=== PATIENT | male | born 1975 | race Two or more races ===

== ENCOUNTER 2018-03-24 21:57 | Emergency (ER) | payer OTHER ==
[~2018-03-24] VITALS: Ht 175.3 cm; Wt 95.3 kg
[2018-03-24] MEDS ORDERED: KEPPRA500 MG (22:09)
[2018-03-24] MEDS ORDERED: TRAZODONE HCL100 MG (22:09)
[2018-03-24] MEDS ORDERED: ATIVAN1 MG (22:09)
[2018-03-24] MEDS ORDERED: ABILIFY10 MG (22:10)
[2018-03-24] MEDS ORDERED: COGENTIN2 MG/2 ML (22:10)
[2018-03-24] MEDS ORDERED: AMBIEN10 MG (22:11)
== END 2018-03-25 04:01 | disposition home or self-care (01) ==
LOC: ER 21:57
DX: K52.9 Noninfective gastroenteritis and colitis, unspecified (principal)